=== PATIENT | female | born 1985 | race Caucasian/White ===

== ENCOUNTER 2018-10-19 17:23 | Emergency (ER) | payer OTHER ==
[~2018-10-19] VITALS: Ht 152.4 cm; Wt 104.3 kg
[~2018-10-19 17:23] MED LIST: ALBU90OI INH; AZIT250 PO; BIRTH CONTROL PATCH; CEPH500 PO; CLOT1TC TOP; Cleocin HCl300 MG PO; HYDACE5 PO; IBUP600 PO; IBUP800 PO; KETO10 PO; MUCUS RELIEF C PO; MULVITMINE; NAPR375 PO; NAPR500 PO; ONDA8ODT MM; PENVK500 PO; PROM25 PO; Prozac20 MG PO; RXCLIN PO; RXHYDACE PO; Zofran Odt4 MG SL
[2018-10-19] MEDS ORDERED: KETO10 PO (18:24)
== END 2018-10-19 18:29 | disposition home or self-care (01) ==
LOC: ER 17:23
DX: S20.212A Contusion of left front wall of thorax, initial encounter (principal); F17.200 Nicotine dependence, unspecified, uncomplicated; Z88.2 Allergy status to sulfonamides; W01.0XXA Fall on same level from slipping, tripping and stumbling without subsequent striking against object, initial encounter
CPT/HCPCS: 71046; 99283-25

== ENCOUNTER → 2021-07-14 | Outpatient (CLI) | payer OTHER | END | disposition home or self-care (01) | LOC: LAB SHORT 09:30 → LAB 09:30 | DX: R31.29 Other microscopic hematuria (principal) | CPT/HCPCS: 87086 ==

== ENCOUNTER 2022-06-12 08:12 | Emergency (ER) | payer OTHER ==
[~2022-06-12] VITALS: Ht 152.4 cm; Wt 113.4 kg
[2022-06-12] MEDS ORDERED: Amoxicillin500 MG PO (10:08)
[2022-06-12] MEDS ORDERED: IBU800 MG PO (10:08)
== END 2022-06-12 10:31 | disposition home or self-care (01) ==
LOC: ER 08:12
DX: K04.7 Periapical abscess without sinus (principal); F17.200 Nicotine dependence, unspecified, uncomplicated; Z88.2 Allergy status to sulfonamides
CPT/HCPCS: 99282